=== PATIENT | male | born 1950 | race Two or more races ===

== ENCOUNTER → 2023-10-07 09:46 | Outpatient (REF) | payer MEDICARE, OTHER, SELFPAY ==
[2023-10-07 11:40] LABS: PSA, Total - Diagnostic < 0.06 ng/ml (0.0-4.0)
== END ==
LOC: REG 09:46
PROVIDERS: ATTENDING PHYSICIAN Physician Assistant; FAMILY PHYSICIAN Internal Medicine
DX: C61 Malignant neoplasm of prostate (principal)
CPT/HCPCS: 36415; 84153

== ENCOUNTER → 2024-02-27 06:22 | Outpatient (REF) | payer MEDICARE, OTHER, SELFPAY ==
[2024-02-27 07:41] LABS: Urine Albumin Negative (Neg - Trace); Urine Bilirubin Negative (Negative); Urine Character Clear (Clear); Urine Color Yellow; Urine Glucose Negative (Negative); Urine Ketone Negative (Negative); Urine Leukocyte Negative (Negative); Urine Nitrite Negative (Negative); Urine Occult Blood Negative (Negative); Urine Specific Gravity 1.005 (<1.030); Urine Urobilinogen Negative (Neg - 1+)
[2024-02-27 07:43] LABS: % Basophils 0.7 % (0-2); % Eosinophils 4.7 % (0-6); % Immature Granulocytes 0.2 % (0-0.5); % Monocytes 11.4 % (1.7-9.3); Absolute Eosinophils 0.2 10^3/uL (0-0.7); Absolute Lymphocytes 0.9 10^3/uL (1.2-3.4); Absolute Monocytes 0.5 10^3/uL (0.1-0.6); Absolute Neutrophils 2.4 10^3/uL (1.4-6.5); Hematocrit 44.5 % (39.0-52.0); Hemoglobin 15.3 g/dL (13.0-18.0); Mean Corp Hgb Conc. 34.4 g/dL (33.0-37.0); Mean Corpuscular Hgb 31.2 pg (27.0-31.0); Mean Corpuscular Volume 90.8 fL (80.0-94.0); Mean Platelet Volume 10.7 fL (7.4-10.4); Nucleated Red Blood Cells % 0 % (-); Platelet Count 203 10^3/uL (130-400); Red Cell Dist. Width 13.8 % (11.5-14.5); White Blood Cell Count 4.1 10^3/uL (4.8-10.8)
[2024-02-27 08:59] LABS: ALT (SGPT) 28 U/L (0-50); AST (SGOT) 34 U/L (17-59); Albumin 4.2 g/dl (3.5-5.0); Alkaline Phosphatase 57 U/L (38-126); Blood Urea Nitrogen 16 mg/dl (9-20); Calcium 9.6 mg/dl (8.4-10.2); Carbon Dioxide 30 mmol/L (22-30); Chloride 101 mmol/L (98-107); Glucose 99 mg/dl (70-99); HDL Cholesterol 97 mg/dl; LDL Cholesterol, Calculated 81 mg/dl; Potassium 5.7 mmol/L (3.5-5.1); Sodium 139 mmol/L (135-145); Total Bilirubin 0.9 mg/dl (0.2-1.3); Total Cholesterol 196 mg/dl (50-199); Total Protein 6.6 g/dl (6.3-8.2); Triglyceride 94 mg/dl (10-149); Very Low Density Lipoprotein 18 mg/dl (0-30); eGFR > 60.00
[2024-02-27 09:52] LABS: Free T4 0.99 ng/dl (0.78-2.19)
== END ==
LOC: REG 06:22
PROVIDERS: ATTENDING PHYSICIAN Internal Medicine
DX: E03.9 Hypothyroidism, unspecified (principal); R00.1 Bradycardia, unspecified; L81.4 Other melanin hyperpigmentation; Z85.46 Personal history of malignant neoplasm of prostate; Z76.89 Persons encountering health services in other specified circumstances
CPT/HCPCS: 36415; 80053; 80061; 81003; 84439; 84443; 85025

== ENCOUNTER → 2024-03-03 13:45 | Outpatient (REF) | payer MEDICARE, OTHER, SELFPAY ==
[2024-03-03 16:05] LABS: Potassium 4.9 mmol/L (3.5-5.1)
[2024-03-03 16:24] LABS: Free T4 0.94 ng/dl (0.78-2.19)
[2024-03-03 16:38] LABS: TSH 2.87 uIU/ml (0.47-4.68)
== END ==
LOC: REG 13:45
PROVIDERS: ATTENDING PHYSICIAN Internal Medicine
DX: E78.5 Hyperlipidemia, unspecified (principal); E03.9 Hypothyroidism, unspecified
CPT/HCPCS: 36415; 84132; 84439; 84443

== ENCOUNTER → 2024-04-05 11:17 | Outpatient (REF) | payer MEDICARE, OTHER, SELFPAY ==
[2024-04-05 14:10] LABS: PSA, Total - Diagnostic < 0.06 ng/ml (0.0-4.0)
== END ==
LOC: REG 11:17
PROVIDERS: ATTENDING PHYSICIAN Physician Assistant; FAMILY PHYSICIAN Internal Medicine
DX: C61 Malignant neoplasm of prostate (principal)
CPT/HCPCS: 36415; 84153

== ENCOUNTER → 2024-05-26 11:59 | Outpatient (REF) | payer MEDICARE, OTHER, SELFPAY ==
[2024-05-26 13:11] LABS: % Basophils 0.8 % (0-2); % Eosinophils 0.7 % (0-6); % Immature Granulocytes 0.2 % (0-0.5); % Lymphocytes 18.7 % (20.5-51.1); % Monocytes 9.7 % (1.7-9.3); % Neutrophils 69.9 % (42.2-75.2); Absolute Basophils 0.1 10^3/uL (0-0.2); Absolute Lymphocytes 1.1 10^3/uL (1.2-3.4); Absolute Monocytes 0.6 10^3/uL (0.1-0.6); Absolute Neutrophils 4.1 10^3/uL (1.4-6.5); Hemoglobin 14.8 g/dL (13.0-18.0); Mean Corp Hgb Conc. 33.6 g/dL (33.0-37.0); Mean Corpuscular Hgb 30.3 pg (27.0-31.0); Mean Platelet Volume 10.2 fL (7.4-10.4); Nucleated Red Blood Cells % 0 % (-); Platelet Count 223 10^3/uL (130-400); Red Blood Cell Count 4.89 10^6/uL (4.70-6.10); Red Cell Dist. Width 13.3 % (11.5-14.5); White Blood Cell Count 5.9 10^3/uL (4.8-10.8)
[2024-05-26 13:18] LABS: Urine Albumin Negative (Neg - Trace); Urine Bilirubin Negative (Negative); Urine Character Clear (Clear); Urine Color Yellow; Urine Glucose Negative (Negative); Urine Ketone Negative (Negative); Urine Leukocyte Negative (Negative); Urine Nitrite Negative (Negative); Urine Occult Blood Negative (Negative); Urine Specific Gravity 1.005 (<1.030); Urine Urobilinogen Negative (Neg - 1+)
[2024-05-26 13:53] LABS: ALT (SGPT) 21 U/L (0-50); AST (SGOT) 29 U/L (17-59); Albumin 4.1 g/dl (3.5-5.0); Alkaline Phosphatase 56 U/L (38-126); Blood Urea Nitrogen 18 mg/dl (9-20); Calcium 9.3 mg/dl (8.4-10.2); Carbon Dioxide 31 mmol/L (22-30); Chloride 97 mmol/L (98-107); Glucose 83 mg/dl (70-99); HDL Cholesterol 86 mg/dl; LDL Cholesterol, Calculated 84 mg/dl; Potassium 5.2 mmol/L (3.5-5.1); Sodium 132 mmol/L (135-145); Total Bilirubin 0.9 mg/dl (0.2-1.3); Total Cholesterol 190 mg/dl (50-199); Total Protein 6.4 g/dl (6.3-8.2); Triglyceride 100 mg/dl (10-149); Very Low Density Lipoprotein 20 mg/dl (0-30); eGFR > 60.00
[2024-05-26 14:14] LABS: TSH Reflex To Free T4 3.15 uIU/ml (0.47-4.68)
== END ==
LOC: REG 11:59
PROVIDERS: ATTENDING PHYSICIAN Internal Medicine
DX: E03.9 Hypothyroidism, unspecified (principal); R00.1 Bradycardia, unspecified; L81.4 Other melanin hyperpigmentation; Z85.46 Personal history of malignant neoplasm of prostate; Z76.89 Persons encountering health services in other specified circumstances
CPT/HCPCS: 36415; 80053; 80061; 81003; 84443; 85025

== ENCOUNTER → 2024-06-18 09:02 | Outpatient (REF) | payer MEDICARE, OTHER, SELFPAY ==
[2024-06-18 11:25] LABS: Albumin 3.9 g/dl (3.5-5.0); Blood Urea Nitrogen 13 mg/dl (9-20); Calcium 9.3 mg/dl (8.4-10.2); Carbon Dioxide 29 mmol/L (22-30); Chloride 100 mmol/L (98-107); Glucose 94 mg/dl (70-99); Phosphorus 3.3 mg/dl (2.5-4.5); Potassium 5.1 mmol/L (3.5-5.1); Sodium 132 mmol/L (135-145); eGFR > 60.00
== END ==
LOC: REG 09:02
PROVIDERS: ATTENDING PHYSICIAN Internal Medicine
DX: E87.5 Hyperkalemia (principal); E87.1 Hypo-osmolality and hyponatremia
CPT/HCPCS: 36415; 80069

== ENCOUNTER 2024-08-23 06:16 | Day surgery (SDC) | payer MEDICARE, OTHER, SELFPAY | END 2024-08-23 11:10 | disposition home or self-care (01) | LOC: GI 06:16 | PROVIDERS: ATTENDING PHYSICIAN Internal Medicine Gastroenterology | DX: Z12.11 Encounter for screening for malignant neoplasm of colon (principal); Z86.0100 Personal history of colon polyps, unspecified; K64.8 Other hemorrhoids | CPT/HCPCS: G0105 ==

== ENCOUNTER 2024-08-29 12:31 | Emergency (ER) | payer MEDICARE, OTHER, SELFPAY ==
[2024-08-29 12:40] VITALS: BP 138/77
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
== END 2024-08-29 14:49 | disposition home or self-care (01) ==
LOC: EMR 12:31
PROVIDERS: EMERGENCY PHYSICIAN Student in an Organized Health Care Education/Training Program; FAMILY PHYSICIAN Internal Medicine
DX: S61.211A Laceration without foreign body of left index finger without damage to nail, initial encounter (principal); V18.0XXA Pedal cycle driver injured in noncollision transport accident in nontraffic accident, initial encounter; Y93.55 Activity, bike riding
CPT/HCPCS: 12042; 99283; 73140

== ENCOUNTER → 2024-11-09 10:36 | Outpatient (REF) | payer MEDICARE, OTHER, SELFPAY ==
[2024-11-09 12:44] LABS: Albumin 4.3 g/dl (3.5-5.0); Blood Urea Nitrogen 19 mg/dl (9-20); Calcium 9.5 mg/dl (8.4-10.2); Carbon Dioxide 29 mmol/L (22-30); Chloride 102 mmol/L (98-107); Glucose 123 mg/dl (70-99); Potassium 5.4 mmol/L (3.5-5.1); Sodium 135 mmol/L (135-145); eGFR > 60.00
[2024-11-09 12:48] LABS: PSA, Total - Diagnostic < 0.06 ng/ml (0.0-4.0)
== END ==
LOC: REG 10:36
PROVIDERS: FAMILY PHYSICIAN Internal Medicine
DX: Z85.46 Personal history of malignant neoplasm of prostate (principal); E87.5 Hyperkalemia; E87.1 Hypo-osmolality and hyponatremia
CPT/HCPCS: 36415; 80069; 84153

== ENCOUNTER → 2024-12-09 12:08 | Outpatient (REF) | payer MEDICARE, OTHER, SELFPAY ==
[2024-12-09 13:48] LABS: Potassium 4.8 mmol/L (3.5-5.1)
== END ==
LOC: REG 12:08
PROVIDERS: ATTENDING PHYSICIAN Internal Medicine
DX: E87.5 Hyperkalemia (principal)
CPT/HCPCS: 36415; 84132

== ENCOUNTER → 2025-03-03 10:12 | Outpatient (REF) | payer MEDICARE, OTHER, SELFPAY ==
[2025-03-03 13:01] LABS: Albumin 4.2 g/dl (3.5-5.0); Blood Urea Nitrogen 15 mg/dl (9-20); Calcium 9.3 mg/dl (8.4-10.2); Carbon Dioxide 30 mmol/L (22-30); Chloride 98 mmol/L (98-107); Glucose 59 mg/dl (70-99); Potassium 4.7 mmol/L (3.5-5.1); Sodium 132 mmol/L (135-145); eGFR > 60.00
== END ==
LOC: REG 10:12
PROVIDERS: ATTENDING PHYSICIAN Internal Medicine
DX: E87.1 Hypo-osmolality and hyponatremia (principal); E87.5 Hyperkalemia
CPT/HCPCS: 36415; 80069

== ENCOUNTER → 2025-04-07 08:25 | Outpatient (REF) | payer MEDICARE, OTHER, SELFPAY ==
[2025-04-07 10:35] LABS: Albumin 4.1 g/dl (3.5-5.0); Blood Urea Nitrogen 12 mg/dl (9-20); Calcium 9.3 mg/dl (8.4-10.2); Carbon Dioxide 30 mmol/L (22-30); Chloride 98 mmol/L (98-107); Glucose 113 mg/dl (70-99); Potassium 4.3 mmol/L (3.5-5.1); Sodium 131 mmol/L (135-145); eGFR > 60.00
== END ==
LOC: REG 08:25
PROVIDERS: ATTENDING PHYSICIAN Internal Medicine
DX: E87.1 Hypo-osmolality and hyponatremia (principal); E87.5 Hyperkalemia
CPT/HCPCS: 36415; 80069